=== PATIENT | female | born 1980 | race Caucasian/White ===

== ENCOUNTER 2025-04-26 06:20 | Day surgery (SDC) | payer BC, SELFPAY | END 2025-04-26 14:10 | disposition home or self-care (01) | LOC: GI 06:20 | PROVIDERS: ATTENDING PHYSICIAN Student in an Organized Health Care Education/Training Program; FAMILY PHYSICIAN Family Medicine | DX: Z12.11 Encounter for screening for malignant neoplasm of colon (principal); R63.4 Abnormal weight loss; K62.89 Other specified diseases of anus and rectum; R10.13 Epigastric pain; K44.9 Diaphragmatic hernia without obstruction or gangrene; K31.7 Polyp of stomach and duodenum; K31.89 Other diseases of stomach and duodenum; R11.0 Nausea; D12.5 Benign neoplasm of sigmoid colon; K29.50 Unspecified chronic gastritis without bleeding; Z80.0 Family history of malignant neoplasm of digestive organs; K21.9 Gastro-esophageal reflux disease without esophagitis; R12 Heartburn | CPT/HCPCS: 43251; 45385; 43239; 88305; 88342 ==

== ENCOUNTER → 2025-05-17 14:10 | Outpatient (REF) | payer BC, SELFPAY | LOC: RAD 14:10 | PROVIDERS: ATTENDING PHYSICIAN Student in an Organized Health Care Education/Training Program; FAMILY PHYSICIAN Family Medicine; OTHER PHYSICIAN Surgery | DX: R63.4 Abnormal weight loss (principal); R11.0 Nausea | CPT/HCPCS: 74177; Q9967 ==

== ENCOUNTER 2025-07-30 10:07 | Emergency (ER) | payer BC, SELFPAY ==
[2025-07-30 10:09] VITALS: BP 143/96
--- NOTE | 2025-07-30 10:34 | ED.GENMED ---
History of Present Illness
General
Chief Complaint: Crisis Evaluation
Source: patient
Exam Limitations: none
Time Seen by Provider: 07/30/25 10:22
History of Present Illness
History of Present Illness:
45yoF with history of Sjogren's disease presenting for evaluation of anxiety. Patient has been dealing with uncontrolled anxiety since April. She states she is waking up in the morning with a panic attack which lasts all day. She states it feels
like her mind is broken. She is under a lot of pressure from her 's family to have a second child. She conceived her first child in 2021 via IVF. She has had several appointments with her fertility specialist but she states she 'just can't
go through' with any . She has lost about 40 pounds in the past few months. She denies any suicidal ideations. She sees a marriage counselor and is scheduled to see a new therapist in 2 days. She also has an appt with a psychiatrist at
the end of the month.
Phy Exam
General Physical Exam
General Presentation: well appearing and no apparent distress
General Skin: warm and dry
General Habitus: normal
General Mental: alert
ENT Exam
ENT Exam: normocephalic
Pulmonary Exam
Pulmonary Exam: no respiratory distress
Neurological Exam
Neurological Exam: alert
Ally Coma Scale
Eye Opening: Spontaneous
Verbal Response: Oriented
Motor Response: Obeys Commands
GCS Total Score: 15
Skin Exam
Skin Exam: normal color and warm/dry
Psychiatric Exam
Psychiatric Exam: anxious and other (Anxious, tearful. No SI. No signs of psychosis. )
Course
Orders/Labs/Results
Orders:
Orders
07/30/25 10:18
1:1 Observation - Suicide/ Violent Behavior As Directed
Crisis Consult Urgent
Reason for Consult: depression, anxiety
07/30/25 10:32
Test Result ONCE
07/30/25 11:07
PSYCHIATRY CONSULT Urgent
Consulting Provider: Gabriel Nielson
Was physician already notified: Yes
07/30/25 11:18
Complete Blood Count/With Diff Urgent
Comprehensive Metabolic Panel Urgent
HCG, Serum Qualitative Screen Urgent
TSH Reflex To Free T4 Urgent
Abnormal Lab Results
07/30/25
11:18
MCHC 32.7 L g/dL
(33.0-37.0)
Chloride 108 H mmol/L
(98-107)
Glucose 100 H mg/dl
(70-99)
Calcium 10.3 H mg/dl
(8.4-10.2)
07/30/25 11:18
07/30/25 11:18
Vital Signs
Initial and Last Documented VS:
Initial Vital Signs
Temp Pulse Resp BP Pulse Ox
98.4 F 82 20 143/96 99
07/30/25 10:09 07/30/25 10:09 07/30/25 10:09 07/30/25 10:09 07/30/25 10:09
Last Documented Vital Signs
Temp Pulse Resp BP Pulse Ox
98.2 F 77 20 127/83 99
07/30/25 13:57 07/30/25 13:57 07/30/25 13:57 07/30/25 13:57 07/30/25 13:57
MDM/Problems Addressed
Differential Diagnosis Includes:
45yoF presenting for uncontrolled anxiety. No SI. Has lost weight due to symptoms. VSS. Patient anxious and tearful during exam. Differential diagnosis includes but is not limited to: Anxiety, depression, thyroid dysfunction
Initial ED plan: Check CBC, CMP, hCG, and TSH. Will consult crisis.
*Pulse Oximetry
SaO2: 99
Oxygen Mode of Delivery: Room air
Patient hypoxic: no (99%)
*Critical Care Note
Total Time (30-74mins, 75-104mins- exclusive of procedures): Not Applicable
Update Note
Update Note:
Labs unremarkable including normal TSH. Patient evaluated by crisis and psychiatric consult pursued. Patient was assessed by psychiatrist who recommends discharge with prescriptions for Zoloft and as needed Ativan which were provided. Patient is
scheduled to see a therapist in 2 days as well as a psychiatrist at the end of the month.
ED Attending Note
-
Portions of this chart may have been created with voice recognition software.� Occasional wrong word or��sound alike� substitutions may have occurred due to the inherent limitations of voice recognition software.
Discharge Plan
Departure
Patient Disposition: Home (Routine Discharge)
Date of Disposition: 07/30/25
Time of Disposition: 13:59
Patient with high blood pressure during this ER visit?: No
Discharge Problem:
Depression, Panic attacks
Instructions: Depression, Adult (DC)
Prescriptions:
New
sertraline [Zoloft] 25 mg tablet
25 mg PO DAILY Qty: 49 0RF
Rx Instructions:
Take 25mg PO daily x 1 week and 50mg daily thereafter
lorazepam 0.5 mg tablet
0.5 mg PO Q6H PRN (Reason: anxiety) Qty: 12 0RF
Activity Restrictions/Additional Instructions:
Take Zoloft as prescribed. Take Ativan as needed for panic attacks/anxiety.
Please follow-up with the therapist and psychiatrist as previously scheduled. Return to the ER with any new or worsening symptoms.
Interventions
Interventions:
*Risk Screen - Suicide Last Done: 07/30/25 10:09
*General Assessment Last Done: 07/30/25 10:09
*Neglect/Abuse Screening Last Done: 07/30/25 10:09
*ED- Fall Risk Assessment Last Done: 07/30/25 14:28
*ED COVID-19 Vaccine History Last Done: 07/30/25 10:51
*Nursing Disposition Last Done: 07/30/25 14:28
ED-Psychological Assessment Last Done: 07/30/25 11:22
Discharge Date and Time
Discharge Date/Time: 07/30/25 14:30
Print Language: GREEK
[2025-07-30 11:34] LABS: Hematocrit 40.1 % (37.0-47.0); Hemoglobin 13.1 g/dL (12.0-16.0); Mean Corp Hgb Conc. 32.7 g/dL (33.0-37.0); Mean Corpuscular Volume 84.4 fL (81.0-99.0); Nucleated Red Blood Cells % 0 %; Platelet Count 315 10^3/uL (130-400); Red Cell Dist. Width 12.7 % (11.5-14.5)
[2025-07-30 11:43] LABS: HCG, Serum Qualitative Screen Negative
[2025-07-30 11:49] LABS: ALT (SGPT) 17 U/L (0-35); AST (SGOT) 17 U/L (14-36); Albumin 4.6 g/dl (3.5-5.0); Alkaline Phosphatase 57 U/L (38-126); Blood Urea Nitrogen 11 mg/dl (7-17); Calcium 10.3 mg/dl (8.4-10.2); Carbon Dioxide 24 mmol/L (22-30); Chloride 108 mmol/L (98-107); Glucose 100 mg/dl (70-99); Potassium 4.4 mmol/L (3.5-5.1); Sodium 138 mmol/L (135-145); Total Protein 8.0 g/dl (6.3-8.2); eGFR > 60.00
[2025-07-30 13:57] VITALS: BP 127/83
--- NOTE | 2025-07-30 14:02 | CON.MD ---
Consultation - Medical
-
45 y/o woman mother of a 2 1/2 y/o through IVF comes to ED with anxiety and depressive symptoms. Was in fertility treatments for two years with plan sof implanting a healthy embryo but 'freezes' and cancels the appointments. Was getting
pressure from (who has since relented) and [id number] to ahve a second child. Pt. is now resolved to not carry another , but they are exploring surrogates which pt. is not completely on board about and is extremely expensive.
Her son is active and healthy. 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 Also taking courses in [employer] and considering a career change.
She had a panic atack in May and has 'not gotten over it.' She has palpitations, chest discomfort/heaviness, need to get fresh air as well as awakening at 5 AM with panic symptoms. She has anhedonia, crying spells, fatigue and feelings of
hopelessness. Denies suicidal intentions, but does not want to live her life this way.
No psychotic symptoms.
Currently takes Atarax (hydroxyzine 10 mg.) at bedtime and for anxiety which is sedating.
Sees a therapist but is dissatisfied and has an appointment with a new therapist, Aissatou Crenshaw, this week and a psychiatrist, Dr. Veronica Martinez later this month.
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 a few times and it made her tired, but did not have a benefit.
Family History; Both parents are . Mother of cancer. Pt. had to make decision to end treatment for her father. Does not talk to her sister. Brother is 'young.' She is oldest sibling.
Social History: Raised in [place], [place] and attended public school. Good student, well behaved. Normal developmental milestones. No traumas or serious medical problems. Had a serious boyfriend in college but it was not right and the
relationship ended. She met her through [employer]. Together since 2008 and in 2021. Has 2 1/2 y/o son. LIves in [place]. Does not drink alcohol.
Has Sjogren's syndrome and seeing a diet supervisor in August for first time; has interstitial cystitis sensitive to medications and chemicals. Allergies to latex and NSAIDS. Off fertility treatments for months.
MSE: Petite woman who is anxious and tearful at times. Alert and oriented. Speech is well-articulated and of normal volume, rate and intonation. No tics or tremors seen. Mood is depressed with feelings of hopelessness. No suicidal or homicidal
ideation. No evidence of hallucinations or delusions. Judgment overall good. Insightful. Motivated for treatment but cautious about medications and potential side-effects.
Labs WNL, not , TSH normal.
Diagnosis Adjustment Disorder with Mixed Anxiety and Depresed Mood
Plan: Discussed with MARGUERITE Bosch. Will give Zoloft (sertraline) 25 mg. one daily for one week and then two daily thereafter; Ativan (lorazepam) 0.5 mg. one to two every 6 hours as needed (plans to use for sleep and cautioned about sedation
and impairment in driving, etc.)
Follow-up by psychiatrist Dr. Martinez.
Discharge to home.
== END 2025-07-30 14:30 | disposition home or self-care (01) ==
LOC: EMR 10:07
PROVIDERS: Physician Assistant; CONSULT PHYSICIAN Psychiatry & Neurology Psychiatry; EMERGENCY PHYSICIAN Emergency Medicine; FAMILY PHYSICIAN Family Medicine
DX: F32.A Depression, unspecified (principal); F41.0 Panic disorder [episodic paroxysmal anxiety]; M35.00 Sjogren syndrome, unspecified; Z79.899 Other long term (current) drug therapy; Z91.040 Latex allergy status
CPT/HCPCS: 99283; 80053; 84443; 84703; 85025